=== PATIENT | female | born 1955 | race Caucasian/White ===

== ENCOUNTER → 2016-10-08 | Outpatient (CLI) | payer BC ==
--- NOTE | 2016-10-08 14:40 | NM ---
EXAMINATION: Nuclear medicine hepatobiliary study (HIDA) with cholecystokinin (calculation of gallbl adder ejection fraction for function). HISTORY: Right upper quadrant pain. PROCEDURE: Following intravenous administration of 4.2 mCi of technetium 99m Choletec, dynamic images were ob tained up to one-hour post injection. This is followed by slow intravenous administration of 1.1 mcg of CCK and additional dynamic images were obtained. Gallbladder ejection fraction is calculated. FINDINGS: The initial dynamic images demonstrates clearance of the tracer from the blood pool with the prompt tracer uptake by the liver. By 25 minutes tracer activity is noted in the gallbladder. The post CCK images demonstrates optimal contraction of the gallbladder with ejection fraction of 78 percent (nor mal is equal or more than 35%). Tracer activity is noted in the small intestine following CCK admini stration. IMPRESSION: 1. Patent cystic and common bile ducts. Normal liver function. 2. Normal gallbladder ejection fraction following CCK administration ( 78%; normal equal or more th an 35%).
--- NOTE | 2016-10-08 15:37 | US ---
EXAMINATION: Right upper quadrant ultrasound HISTORY: Pain COMPARISON: None TECHNIQUE: Grayscale and color Doppler images obtained of the right upper quadrant. FINDINGS: The pancreas is not optimally characterize. The liver is overall normal in contour and ech ogenicity. There is however a triangular-shaped hyperechoic mass measuring 3.6 x 2.8 cm near the por ta hepatis. It is uncertain whether this is an intrahepatic lesion within the provided imaging. The gallbladder wall thickness is normal. No pericholecystic fluid or shadowing gallstones. Right kidney measures 10.3 cm [id number] without evidence of hydronephrosis. Sonographic Sol sign is negati ve. IMPRESSION: Line 1. There is a hyperechoic 3.6 x 2.8 cm mass within the region of the [place] hepatis. This could repre sent a hepatic hemangioma however the origin is not certain. Correlation with a hepatic protocol CT or MRI may be beneficial.
== END ==
LOC: MW.US 11:22
PROVIDERS: ATTEND Nurse Practitioner Family
DX: R10.11 Right upper quadrant pain (principal); R16.0 Hepatomegaly, not elsewhere classified
CPT/HCPCS: 76705; 78227; A9537; J2805